=== PATIENT | female | born 1975 | race Caucasian/White ===

== ENCOUNTER 2018-02-06 17:29 | Emergency (ER) | payer BC, SELFPAY | END 2018-02-06 21:10 | disposition home or self-care (01) | PROVIDERS: Emergency Provider Emergency Medicine; Family Provider Family Medicine; PCP Family Medicine; Visit Provider Emergency Medicine | DX: G89.18 Other acute postprocedural pain (principal) | CPT/HCPCS: 74022; 80053; 85025; 93005; 93010; 96374; 96375; 99058; 99285; J2270; J2405 ==

== ENCOUNTER 2020-10-11 14:59 | Emergency (ER) | payer BC, SELFPAY | END 2020-10-11 15:41 | disposition left against medical advice (07) | PROVIDERS: Emergency Provider Emergency Medicine; Family Provider Family Medicine; PCP Family Medicine ==

== ENCOUNTER 2024-09-14 17:44 | Emergency (ER) | payer OTHER, SELFPAY ==
[2024-09-14 17:50] VITALS: BP 134/65; PULSE 85; RESP 20; TEMP 36.4; O2SAT 99; BMI 34.0
--- NOTE | 2024-09-14 18:11 | DI.RAD.S_ITS ---
PROCEDURE: XR FOOT RT MIN 3V INDICATIONS: severe pain in R foot after stepping down on cardboard TECHNIQUE: 3 views of the foot were acquired. COMPARISON: None. FINDINGS: Bones: No fractures or dislocations. No suspicious bony lesions. Incidental note is made of an accessory ossicle, an os tibiale externum. A plantar calcaneal spur is seen. Soft tissues: No tibiotalar joint effusion. Achilles tendon appears normal. IMPRESSION: No acute bony abnormality is seen on these plain films. Dictated by: Boo Vargas M.D. on 09/14/2024 at 17:27 Approved by: Boo Vargas M.D. on 09/14/2024 at 17:28
--- NOTE | 2024-09-14 18:29 | ED.LOWEXIN ---
HPI - Extremity Injury (Lower) <Marily Coley PA-C - Last Filed: 09/14/24 20:21> General Chief Complaint: Extremity Injury, Lower Stated Complaint: R Foot Pain, Numbness in Toes Time Seen by Provider: 09/14/24 17:57 Source: patient Mode of arrival: Ambulatory History of Present Illness HPI Narrative: Ms. George is a pleasant 49 year old female with a past medical history of pheochromocytoma and R foot lipoma removal who presents to the ED for right foot pain that occurred just prior to arrival. Patient states she accidentally stepped onto a piece of cardboard that slipped forward causing her to bear all of her weight aggressively on the right foot. States that she developed sudden pain on the top of the right foot. She did not take any medications prior to arrival. Denies any deformities or wounds. She still has appropriate sensation and range of motion but has pain with ambulation. She did not fall. Related Data Home Medications Medication Instructions Recorded Confirmed duloxetine 20 mg capsule,delayed PO QDAY ##0 02/06/18 release (Cymbalta) Allergies Allergy/AdvReac Type Severity Reaction Status Date / Time Penicillins [PENICILLINS] Allergy Unknown Verified 04/27/19 13:11 ANTI-INFLAMATORIES Allergy Intermediate Uncoded 01/30/18 12:51 SOLINDAC Allergy Unknown Uncoded 02/06/18 18:07 Review of Systems <Marily Coley PA-C - Last Filed: 09/14/24 20:21> Review of Systems ROS Unobtainable: All systems reviewed & are unremarkable except as noted in HPI and below Patient History <Marily Coley PA-C - Last Filed: 09/14/24 20:21> Social History Smoking Status: Current every day smoker Smoking Status: Current every day smoker alcohol intake frequency: a few times a week Substance Use Type: marijuana Exam <Marily Coley PA-C - Last Filed: 09/14/24 20:21> Narrative Exam Narrative: GENERAL: 49 year old patient appears stated age. Well-developed patient, in no acute distress. HEAD: Atraumatic. Normocephalic. EYES: Extraocular motions intact. No injection or drainage. ENT: Nose without bleeding, purulent drainage. Airway patent. NECK: Trachea midline. Cervical ROM intact. CARDIOVASCULAR: Regular rate RESPIRATORY: ?Nonlabored respirations. ?Speaking in clear, full sentences. ? EXTREMITIES: RIGHT FOOT: Tenderness to light palpation of dorsal right midfoot. No focal or point tenderness. No deformities or overlying skin changes. No tenderness to palpation of medial or lateral malleolus, heel, digits. Brisk capillary refill and strong DP and PT pulses BL. NEURO: AOx3. ?Clear speech. ?Moves all 4 extremities appropriately. SKIN: No rash or erythema of visible areas Initial Vital Signs Initial Vital Signs: Vital Signs Temperature 97.6 F 09/14/24 17:50 Pulse Rate 85 09/14/24 17:50 Respiratory Rate 20 09/14/24 17:50 Blood Pressure 134/65 09/14/24 17:50 Pulse Oximetry 99 09/14/24 17:50 Oxygen Delivery Method Room Air 09/14/24 17:50 <DO Sunshine Perkins Last Filed: 09/14/24 21:30> Initial Vital Signs Initial Vital Signs: Vital Signs Temperature 97.6 F 09/14/24 17:50 Pulse Rate 85 09/14/24 17:50 Respiratory Rate 20 09/14/24 17:50 Blood Pressure 134/65 09/14/24 17:50 Pulse Oximetry 99 09/14/24 17:50 Oxygen Delivery Method Room Air 09/14/24 17:50 Course <Marily Coley PA-C - Last Filed: 09/14/24 20:21> Orders Ordered: ED Orders 09/14/24 18:11 XR foot RT min 3V Stat Discontinued Medications Acetaminophen (Acetaminophen 325 Mg Tablet) 650 mg PO NOW ONE Stop: 09/14/24 18:29 Last Admin: 09/14/24 18:47 Dose: 650 mg Documented By: FREDDY Oxycodone/Acetaminophen (Oxycodone/Acetaminophen 5/325 Tablet) 1 tab PO NOW ONE Stop: 09/14/24 18:29 Last Admin: 09/14/24 18:47 Dose: 1 tab Documented By: FREDDY Vital Signs Vital signs: Vital Signs - 8 hr 09/14/24 17:50 Temperature 97.6 F Pulse Rate 85 Respiratory Rate 20 Blood Pressure 134/65 Pulse Oximetry 99 Oxygen Delivery Method Room Air <DO Sunshine Perkins Last Filed: 09/14/24 21:30> Orders Ordered: ED Orders 09/14/24 18:11 XR foot RT min 3V Stat Discontinued Medications Acetaminophen (Acetaminophen 325 Mg Tablet) 650 mg PO NOW ONE Stop: 09/14/24 18:29 Last Admin: 09/14/24 18:47 Dose: 650 mg Documented By: FREDDY Oxycodone/Acetaminophen (Oxycodone/Acetaminophen 5/325 Tablet) 1 tab PO NOW ONE Stop: 09/14/24 18:29 Last Admin: 09/14/24 18:47 Dose: 1 tab Documented By: FREDDY Vital Signs Vital signs: Vital Signs - 8 hr 09/14/24 17:50 Temperature 97.6 F Pulse Rate 85 Respiratory Rate 20 Blood Pressure 134/65 Pulse Oximetry 99 Oxygen Delivery Method Room Air MDM - Extremity Injury (Lower) <Marily Coley PA-C - Last Filed: 09/14/24 20:21> MDM Narrative Medical decision making narrative: 49-year-old female with a past medical history pheochromocytoma and right foot lipoma removal presents to the emergency department for right foot pain after stepping wrong just prior to arrival. Differential diagnosis includes but is not limited to foot fracture, foot strain, sprain, contusion, hematoma, etc.. On exam patient is in no acute distress, nontoxic appearing, vital signs within normal limits. She does have intense reported pain with any weight-bearing of the right foot or palpation on the dorsal aspect of the foot. We will obtain x-ray of the right foot and treat pain with 1 time dose of oxycodone and Tylenol. Patient's but x-ray reveals no acute bony abnormalities. Patient was placed into a right foot postop shoe and was given crutches and advised to weightbear as tolerated. Advised patient to follow up with orthopedics or podiatry for further evaluation of possible soft tissue injury of the foot, she states that she already has an orthopedic doctor which she will call tomorrow. Recommended ibuprofen/Tylenol if needed for pain, rice therapy, strict ER return precautions discussed. Patient is with her to drive her home and is stable for discharge. Discharge Plan Departure Patient Disposition: Home Clinical Impression: Right foot strain Qualifiers: Encounter type: initial encounter Qualified Code(s): S96.911A - Strain of unspecified muscle and tendon at ankle and foot level, right foot, initial encounter Instructions: DI for Foot Pain Activity Restrictions/Additional Instructions: Please rest, ice foot, wear compressive wrap or supportive shoe, and elevate foot. Use tylenol if needed for pain. Weight bear as tolerated (use crutches if needed). You may call to schedule an appointment with [facility] for follow up at [phone]. Follow up with a primary doctor in 2-3 days and return to the ER for any new or worsening symptoms. Prescriptions: No Action duloxetine [Cymbalta] 20 mg capsule,delayed release(DR/EC) PO QDAY Qty: 0 Referrals: Cinthya Alba DO [Primary Care Provider] - Stand Alone Forms: Patient Portal/API/Survey ED Sign-out <Germaine Enciso DO - Last Filed: 09/14/24 21:30> Cosign ED Attending Sophia Attestation: I was immediately available in the department for consultation.
[2024-09-14] MEDS: ACETAMINOPHEN 325 MG TABLET 650 MG PO (18:47)
[2024-09-14] MEDS: OXYCODONE/ACETAMINOPHEN 5/325 TABLET 1 TAB PO (18:47)
== END 2024-09-14 19:21 | disposition home or self-care (01) ==
PROVIDERS: Emergency Provider Physician Assistant; Family Provider Family Medicine; PCP Family Medicine
DX: S96.911A Strain of unspecified muscle and tendon at ankle and foot level, right foot, initial encounter (principal); W01.0XXA Fall on same level from slipping, tripping and stumbling without subsequent striking against object, initial encounter
CPT/HCPCS: 73630; 99283

== ENCOUNTER → 2025-01-21 13:26 | Outpatient (CLI) | payer OTHER, SELFPAY ==
--- NOTE | 2025-01-21 13:28 | DI.US.S_ITS ---
PROCEDURE: US PELVIC COMPLETE INDICATIONS: IRREGULAR BLEEDING - ?POSTMENOPAUSAL TECHNIQUE: Real-time scanning was performed of the pelvic organs, with image documentation. Additional endovaginal scanning was necessary due to incomplete visualization of the adnexal and endometrial structures by transabdominal scanning. COMPARISON: None. FINDINGS: Uterus: Uterus is mobile and normal in size at 7.9 x 4.9 x 4.3 cm. The myometrium is homogeneous. The endometrium measures 6.3 mm combined thickness. Microcysts with trace anechoic fluid in the cervix. Ovaries: The right ovary is not well seen. The left ovary measures 2.8 x 2.1 x 2.0 cm, with a calculated ovarian volume of 6.2 cc. Left ovary is grossly normal in appearance. Other: No pathologic free abdominal or pelvic fluid. IMPRESSION: Endometrium measures 6 mm in thickness. If patient is postmenopausal, this is considered thickened and short-term follow-up ultrasound or endometrial sampling is recommended. If patient is premenopausal, this is within normal limits. Left ovary is grossly normal in appearance. Right ovary is not well seen. We strive to produce accurate, complete, and clear reports of imaging services. To assist us in improving patient care, this report was composed using standard report templates and voice recognition software. Therefore, it may contain abnormal punctuation, insertions and/or omissions. Occasional wrong-word or sound-alike substitutions may occur. Though we review the report and make efforts to correct it, we do recommend that the report be read carefully in proper context to recognize any text inaccuracies. Dictated by: Donnie Ybarra M.D. on 01/21/2025 at 15:14 Approved by: Donnie Ybarra M.D. on 01/21/2025 at 15:18
== END ==
PROVIDERS: Family Provider Family Medicine; PCP Obstetrics & Gynecology; Referring Provider Obstetrics & Gynecology; Visit Provider Obstetrics & Gynecology
DX: N92.6 Irregular menstruation, unspecified (principal)
CPT/HCPCS: 76830; 76856

== ENCOUNTER 2025-03-19 09:09 | Day surgery (SDC) | payer BC, SELFPAY ==
[2025-03-11 09:19] VITALS: BMI 36.6
[2025-03-19] VITALS (16 sets, daily range): BP systolic 108–137; BP diastolic 57–81; PULSE 22–84; RESP 10–19; TEMP 35.9–37; O2SAT 95–100; BMI 34.0; BMI 34.2
--- NOTE | 2025-03-19 | PATH_ITS ---
[facility] Accession Number: [id number] No. of containers..01 Tissue . 01 Material submitted: . uterus - UTERUS, CERVIX, BILATERAL FALLOPIAN TUBES . 01 Diagnosis: UTERUS, CERVIX AND BILATERAL FALLOPIAN TUBES; HYSTERECTOMY AND BILATERAL SALPINGECTOMY (PRESERVED OVARIES): Uterine weight: 92 grams. Mild chronic cervicitis; negative for dysplasia and malignancy. Secretory phase endometrium; negative for endometrioid intraepithelial neoplasia and malignancy. Negative for adenomyosis, on in home sales representative sections. Bilateral fallopian tubes without pathologic abnormalities; negative for atypia or malignancy. [facility] 03/25/2025 1432 Local . 01 Electronically signed: . Ann Morrison MD, Pathologist NPI- [id number] . 01 Gross description: . Received in formalin with two identifiers and uterus, cervix, bilat fallopian tubes, is an intact uterus (92 grams, 8.7 cm superior to inferior, 6.1 cm medial to lateral, 3.9 cm anterior to posterior) with attached cervix (3.0 x 3.0 cm), attached left fallopian tube (6.5 x 0.6 cm), and detached right fallopian tube (6.7 x 0.7 cm) with no additional adnexa. . The ectocervix is pink, smooth, and glistening with a patulous os, 1.0 cm in diameter. The anterior paracervical margin is inked blue while the posterior paracervical margin is inked black. A large metal surgical clip (1.5 x 0.4 cm) that is partially covered by a thin layer of soft tissue is identified at the junction of the right parametrial and paracervical margins. The serosa is uribe and smooth with no hemorrhage or adhesion identified. The endocervical canal has uribe herringbone mucosa and measures 3.6 cm in length. The endometrial cavity is 2.5 cm from cornu to cornu and 4.2 cm in length with red velvety endometrium that averages 0.1 cm thick. The myometrium is pink-uribe and trabecular measuring up to 1.9 cm in maximum thickness with no nodules or lesions identified. Both tubes have violaceous, smooth serosa with small cysts up to 0.1 cm in greatest dimension. A metal surgical clip covered with thin layer of soft tissue is identified at the base of the left fallopian tube (1.5 x 0.4 cm). No clip is identified on the right fallopian tube. The lumens are stellate and unremarkable. . Sales Exec sections are submitted as follow: A1: Anterior cervix. A2: Posterior cervix. A3: Anterior full thickness section. A4: Posterior full thickness section. A5: Left fallopian tube to include one-half of bisected fimbriae and cross sections. A6: Right fallopian tube to include one-half of bisected fimbriae and cross sections. ([id number]) /MRV 03/20/2025 [facility]5 Local . 01 Pathologist provided ICD-10: N81.2, R10.2, N93.9, N39.3, N81.10 . 01 CPT . 984917 Specimen Comment: A courtesy copy of this report has been sent to [phone] Performed at: [address] [address], [place], [place] [id number] MD Jv Martinez MD Phone: [phone]
[2025-03-19] MEDS: FAMOTIDINE 20 MG/2 ML VIAL IV (09:38)
[2025-03-19] MEDS: SCOPOLAMINE 1 PATCH TOP (09:39)
[2025-03-19] MEDS: ACETAMINOPHEN 325 MG TABLET 975 MG PO (09:39)
[2025-03-19] MEDS: LACTATED RINGERS 1,000 ML 42 ML IV (09:39)
--- NOTE | 2025-03-19 09:51 | PM.PREOP ---
Pre-operative Note COVID-19 COVID-19 status: Not tested Interval Note History & Physical reviewed/Exam performed by Physician: Yes Changes to H&P: No
[2025-03-19] MEDS: CEFAZOLIN 2 GM/100 ML PREMIX 100 ML IV (10:40)
--- NOTE | 2025-03-19 10:57 | SUR.OPER ---
Lithotomy on padded OR bed. [place] Pad Positioner under torso. Head on pillow, arms padded and tucked at sides, left arm toboggan used to support, shoulders secured with tape. Legs secured in padded yellow fins stirrups.
[2025-03-19] MEDS: BUPIVACAINE 0.5% W/ EPI (PF) 30 ML VIAL INJ (12:01)
--- NOTE | 2025-03-19 14:39 | P.OP_ITS ---
Operative Date/Time/Diagnoses Date of procedure: 03/19/25 Time of procedure: 11:00 Pre-op diagnosis: Abnormal uterine bleeding Cystocele Stress urinary incontinence Uterovaginal prolapse, incomplete Post-op diagnosis: same Procedure & Clinicians Procedure: Procedures Operation Date: 03/19/25 10:30 Actual Procedure Side Surgeon p Laparoscopic Total Hysterectomy with bilateral salpingectomy, laparoscopic uterosacral ligament vault suspension Claudio De La Cruz MD s anterior repair, Not Applicable Claudio De La Cruz MD s mid urethral sling placement with cystoscopy Not Applicable Claudio De La Cruz MD Indications: Pastora is a 49-year-old , LMP in December 2024 who presents for evaluation and recommendations for therapy related to a couple of complaints for which she and her primary care provider believe she would be a candidate for hysterectomy. Patient experienced menarche at age 15 and has pretty much had irregular menses throughout her reproductive life. Over the last few years however the patient has been having significant vasomotor symptoms and her menses have become widely spaced. Her most recent period on in December 2024 was the 1st episode of bleeding that she has had in about a year. That bleeding episode occurred after she applied topical progesterone to counter balance use of topical estrogen cream. Prior to the period December 2024, the patient had almost gone 2 years without any episodes of bleeding. Pelvic ultrasound performed 01/21/2025 showed the uterus to be mobile and normal in size at 7.9 by 4.9 x 4.3 cm. The myometrium is described as homogeneous. The endometrium measures 6.3 mm in combined thickness and microcysts with trace leuks anechoic fluid is noted in the cervix. The right ovary is not well seen. The left ovary measures 2.8 x 2.1 x 2.0 cm with a calculated ovarian volume of 6.2 cc. The left ovary is grossly normal in appearance. There was no pathological free abdominal or pelvic fluid. Patient experiences constant lower abdominal discomfort and low back pain with lower abdominal bloating. In addition the patient has progressively worsening dyspareunia with intercourse in that discomfort lasts for more than 24 hours following intercourse which is becoming a reason for her to want to avoid intercourse. Topical estrogen was started about 3 months ago but when progesterone was added, it triggered severe bleeding with passage of large clots and therefore both the estradiol and the progesterone were withdrawn. Past history is notable for normal Paps throughout her adult life although she is overdue for a Pap. In addition she is scheduled to have both her Pap and an endometrial biopsy performed by Dr. Briggs in her office on February 14. Surgical history is notable for history of cholecystectomy in 2000 and spinal fusion surgery in 2014 performed transabdominally after which she developed a MRSA infection and as a result wound up with a great deal of scarring at the incision site as well as the presence of a wound VAC for 3 months and gradually closure of the abdominal incision by secondary intention. Patient was recently d iagnosed with a left-sided adrenal mass diagnosed as a pheochromocytoma according to the patient but no records are available for review. She has apparently been seen by a surgeon who was apparently unwilling to remove the adrenal due to concern over intra-abdominal scarring. Unfortunately no records are available for review of either her spinal fusion surgery or the consultation with the surgeon for removal of the adrenal mass. The patient, her , and I had an extended discussion about potential causes of abnormal uterine bleeding as well as treatment options. We also discussed potential causes of her deep dyspareunia and pelvic pain as well as potential treatment options. And finally we also discussed her prolapse and MIKI symptoms as well as options for treatment. After these discussions, the patient would very much like to proceed with total laparoscopic hysterectomy and bilateral salpingectomy with preservation of ovaries if they are normal in appearance, laparoscopic uterosacral ligament suspension of the vaginal vault, anterior repair, and placement of a mid urethral sling with cystoscopy. Consideration may also be given to posterior repair although it is only stage I and asymptomatic. The sequelae from the patient's transabdominal lumbar fusion including significant intra-abdominal scarring is certainly a consideration as we approach surgery. Based on that history, initial laparoscopic entry at Lucio's point will likely be prudent although there is no scarring evident at the umbilicus. She presents today for her scheduled surgery. Surgeon: Claudio De La Cruz Anesthesia Type: General Operative Notes Findings: Stage 2-3 cystocele with stage 2 uterovaginal prolapse. There is a first-degree rectocele which is asymptomatic and was largely reduced by elevation of the vaginal apex with the uterosacral ligament suspension. Both ovaries appeared normal. The fallopian tubes demonstrate changes with prior application of Hulka clips. The bladder is normal in all respects with no evidence of injury and brisk jets of urine were seen to come from each ureteral meatus. The remainder of the abdomen and pelvis were normal to laparoscopic inspection with the exception of adhesions to the anterior abdominal wall where her anterior approach laminectomy at previously been performed. These were all lysed during the course of surgery. Closure Type: primary Specimen(s): left tube, right tube and uterus Applied: catheter Estimated blood loss (mL): 125 Blood products transfused: none Procedure in detail: With the patient in modified dorsal lithotomy position preparations were made by prepping and draping the patient in usual manner for vaginal surgery and in sertion of Talley catheter. A pre-surgical time-out was then taken in accordance with [facility] policy. A bivalve speculum was then placed in the vagina and the cervix visualized. A weighted speculum was inserted in the vagina and the anterior vaginal wall inspected. A Talley catheter was inserted in the bladder and the mid urethra was identified by palpation of the Talley bulb. Once the mid urethra had been identified, 2 Allis clamps were placed and the area of incision infiltrated with 0.25% Marcaine with epinephrine. A 2 cm longitudinal incision of the vaginal mucosa overlying the mid urethra was then made and using Metzenbaum scissors the dissection was carried lateral on both sides so as to be able to safely introduce the retropubic tension-free vaginal tape. The TVT needle was placed 1st on the right side followed by placement of a left up through the suprapubic skin. The needle tips were brought out through the skin and remained in place while the Talley catheter was removed and cystoscopy performed with findings as noted above. The TVT needles were then brought up through the suprapubic incisions and removed with suture scissors. The mid urethral sling was then appropriately positioned under the mid urethra and the plastic sleeves removed from the TVT once it was in correct position. The redundant portion TVT material was then excised at the skin line of the suprapubic incisions. Correct positioning of the TVT was then confirmed and the vaginal incision closed with 3-0 chromic in a running locking stitch. Pressure was maintained on the retropubic tissues for 5 minutes so as to reduce the risk subsequent bleeding or bruising. The suprapubic incisions were then closed with skin glue. and an appropriate dressing was applied. The midline of the upper vaginal mucosa underlying the bladder was then infiltrated with 0.5% Marcaine with epinephrine and a longitudinal incision of the mucosa was carried out up to the cervical vaginal reflection. The underlying tissues were mobilized on both sides and a two-layer plication with 0 Vicryl interrupted was then performed in the usual manner followed by resection of redundant anterior vaginal mucosa. The anterior colporrhaphy was then closed with 0 Vicryl interrupted stitches and hemostasis was excellent. The anterior lip of the cervix was then grasped with a single-tooth tenaculum. The uterus was sounded to 7 cm, the endocervical canal dilated slightly, and a Nuevolutionare uterine manipulator with a small colpotomy cup was placed. The umbilicus was then infiltrated with 0.5% Marcaine with e pinephrine. A 1 cm umbilical incision was made transversely and a Veress needle was used to insufflate the abdominal cavity with carbon dioxide. Once the abdomen was appropriately insufflated, a 5 mm trocar and sleeve were then placed through the umbilical incision. The scope was placed through the trocar and the initial assessment of the intra-abdominal contents carried out. A 2nd and 3rd 5 mm port was then placed 1st in the right mid quadrant from then the left mid quadrant by infiltration of the skin and subcutaneous tissues, a 1 cm transverse incision and insertion of the 5 mm bladeless port. A 4th 5 mm trocar was introduced deep in the right lower quadrant in a similar fashion. Using a 4 puncture technique, the abdomen and pelvis were inspected laparoscopy and photographically documented. The uterosacral ligaments were identified on both sides and the lateral edges of the uterosacral ligaments were marked with small dots created by monopolar cautery on cutting current at 20 w so as to be able to identify the lateral margins of the uterosacral ligaments at the time of uterosacral vault suspension. Uterus is mobilized with the VCare manipulator and attention turned to the left adnexa. The distal tube was then grasped and the fimbria varicose divided after coagulation with the PowerSeal device. The dissection was then carried out toward the cornua and the fallopian tube amputated. The tube was removed through a 5 mm port and dissection was then carried down using the PowerSeal device so as to divide the utero-ovarian ligament and the round ligament with blunt and sharp dissection of the broad down to the level of the uterine artery. The uterine artery was then skeletonized after development of a bladder flap, coagulated, and divided. Once hemostasis was assured on the left side attention was turned to the right and the tube, utero-ovarian ligament, round ligament, and broad ligament were dissected in a fashion exactly the same as it had been on the left. The right uterine artery was then visualized after skeletonization and coagulated and divided. The uterus was seen to johan after coagulation of both your arteries and the cup was identified through the vaginal muscularis at its insertion with the body of the cervix. Circumferential excision of the vaginal cup was accomplished without difficulty using monopolar current and the uterus mobil ized. The uterus was then removed through the vagina and the vaginal cuff was closed with a 2-0 Stratafix suture introduced through the vaginal canal and incorporating the distal aspects of the uterosacral ligaments on both sides. Hemostasis was excellent, the abdomen was re-insufflated, and the pelvis inspected laparoscopically. Using 2-0 Ethibond suture, 2 sutures were placed on either side so as to incorporate the more proximal portions of the uterosacral ligament on each side to the vaginal cuff. Each suture was tied securely in place with extracorporeal knot pusher. The pelvis was inspected for any abnormality or bleeding, and the ureters were each seen to be peristalsing freely. 20 cc of ropivacaine were instilled into the posterior cul-de-sac. With complete hemostasis assured, the pneumoperitoneum was vented and the ports removed. All of the 5 mm ports were then closed with 4-0 Monocryl on the skin using inverted interrupted sutures. Skin glue was placed and after the glue was dried, an appropriate dressing was applied. Speculum exam showed no vaginal bleeding with excellent suspension of the vaginal apex and anterior vaginal wall. The posterior vaginal wall had minimal laxity in was not felt to warrant repair at this point. The case was then terminated, the patient awakened, and then transferred to PACU after having tolerated the procedure well. Complications: none Post-operative Condition: stable Disposition: PACU Plan for aftercare: Routine postop care with follow-up planned for 2 weeks after surgery
[2025-03-19] MEDS: HYDROMORPHONE 1 MG INJ IV ×5 (14:55→18:25)
[2025-03-19] MEDS: hydrOXYzine 50 MG/ML INJ 25 MG IM (14:57)
[2025-03-19] MEDS: ONDANSETRON 4 MG/2 ML INJ IV ×2 (15:01→21:43)
[2025-03-19] MEDS: fentaNYL 100 MCG/2 ML INJ IV ×2 (15:07→15:12)
[2025-03-19] MEDS: OXYCODONE IR 5 MG TABLET PO (15:32)
[2025-03-19] MEDS: KETOROLAC 30 MG/ML VIAL IV ×2 (16:19→21:43)
[2025-03-19] MEDS: ACETAMINOPHEN 325 MG TABLET 650 MG PO ×2 (16:20→21:43)
[2025-03-19] MEDS: LACTATED RINGERS 1,000 ML 100 ML IV (16:21)
[2025-03-19] MEDS: DOCUSATE 100 MG CAPSULE 200 MG PO (21:43)
[2025-03-20 03:58] VITALS: BP 134/74; PULSE 86; RESP 19; TEMP 36.7; O2SAT 98
[2025-03-20] MEDS: ACETAMINOPHEN 325 MG TABLET 650 MG PO (04:21)
[2025-03-20] MEDS: KETOROLAC 30 MG/ML VIAL IV (04:22)
[2025-03-20] MEDS: ONDANSETRON 4 MG/2 ML INJ IV (04:22)
[2025-03-20 05:56] LABS: Add Manual Diff / Slide Review NO; Basophils Absolute Auto 100 /uL (0-100); Basophils Percent Auto 0.7 % (0-2); Eosinophils Absolute Auto 0 /uL (0-450); Eosinophils Percent Auto 0.1 % (2-4); Hematocrit 33.5 % (36-46); Hemoglobin 11.8 g/dL (12.0-16.0); Lymphocytes Absolute Auto 1000 /uL (1100-4500); Lymphocytes Percent Auto 9.5 % (25-40); Mean Corpuscular HGB Conc 35.2 % (30-36); Mean Corpuscular Hemoglobin 30.6 PG (26-34); Mean Corpuscular Volume 87.1 fL (80-100); Monocytes Absolute Auto 700 /uL (0-900); Monocytes Percent Auto 6.4 % (3-14); Neutrophils Absolute Auto 8900 /uL (1500-7000); Neutrophils Percent Auto 83.3 % (50-75); Platelet Count 329 X10^3/uL (150-400); Red Blood Cell Count 3.85 X10^6/uL (4.0-5.2); Red Cell Distribution Width 12.5 % (11.6-14.8); White Blood Cell Count 10.7 X10^3/uL (4.5-11.0)
[2025-03-20 08:00] VITALS: BP 127/84; PULSE 72; RESP 18; TEMP 37.1; O2SAT 96
[2025-03-20] MEDS: DOCUSATE 100 MG CAPSULE 200 MG PO (08:07)
[2025-03-20] MEDS: DULOXETINE 20 MG CAPSULE PO (08:07)
[2025-03-20] MEDS: OXYCODONE IR 5 MG TABLET PO (08:07)
[2025-03-20] MEDS: METOPROLOL ER 50 MG TABLET PO (08:08)
[2025-03-20] MEDS: ENOXAPARIN 40 MG/0.4 ML SYRINGE SUBCUT (08:08)
[2025-03-20] MEDS: hydroCHLOROthiazide 25 MG TABLET 12.5 MG PO (08:08)
--- NOTE | 2025-03-20 08:08 | PM.DS.IH.1 ---
History of Present Illness History of Present Illness Date Patient Seen: 03/20/25 Time Patient Seen: 08:08 Chief complaint: SDC Narrative: Pastora is a 49-year-old , LMP in December 2024 who presents for evaluation and recommendations for therapy related to a couple of complaints for which she and her primary care provider believe she would be a candidate for hysterectomy. Patient experienced menarche at age 15 and has pretty much had irregular menses throughout her reproductive life. Over the last few years however the patient has been having significant vasomotor symptoms and her menses have become widely spaced. Her most recent period on in December 2024 was the 1st episode of bleeding that she has had in about a year. That bleeding episode occurred after she applied topical progesterone to counter balance use of topical estrogen cream. Prior to the period December 2024, the patient had almost gone 2 years without any episodes of bleeding. Pelvic ultrasound performed 01/21/2025 showed the uterus to be mobile and normal in size at 7.9 by 4.9 x 4.3 cm. The myometrium is described as homogeneous. The endometrium measures 6.3 mm in combined thickness and microcysts with trace leuks anechoic fluid is noted in the cervix. The right ovary is not well seen. The left ovary measures 2.8 x 2.1 x 2.0 cm with a calculated ovarian volume of 6.2 cc. The left ovary is grossly normal in appearance. There was no pathological free abdominal or pelvic fluid. Patient experiences constant lower abdominal discomfort and low back pain with lower abdominal bloating. In addition the patient has progressively worsening dyspareunia with intercourse in that discomfort lasts for more than 24 hours following intercourse which is becoming a reason for her to want to avoid intercourse. Topical estrogen was started about 3 months ago but when progesterone was added, it triggered severe bleeding with passage of large clots and therefore both the estradiol and the progesterone were withdrawn. Past history is notable for normal Paps throughout her adult life although she is overdue for a Pap. In addition she is scheduled to have both her Pap and an endometrial biopsy performed by Dr. Briggs in her office on February 14. Surgical history is notable for history of cholecystectomy in 2000 and spinal fusion surgery in 2014 performed transabdominally after which she developed a MRSA infection and as a result wound up with a great deal of scarring at the incision site as well as the presence of a wound VAC for 3 months and gradually closure of the abdominal incision by secondary intention. Patient was recently diagnosed with a left-sided adrenal mass diagnosed as a pheochromocytoma according to the patient but no records are available for review. She has apparently been seen by a surgeon who was apparently unwilling to remove the adrenal due to concern over intra-abdominal scarring. Unfortunately no records are available for review of either her spinal fusion surgery or the consultation with the surgeon for removal of the adrenal mass. The patient, her , and I had an extended discussion about potential causes of abnormal uterine bleeding as well as treatment options. We also discussed potential causes of her deep dyspareunia and pelvic pain as well as potential treatment options. And finally we also discussed her prolapse and MIKI symptoms as well as options for treatment. After these discussions, the patient would very much like to proceed with total laparoscopic hysterectomy and bilateral salpingectomy with preservation of ovaries if they are normal in appearance, laparoscopic uterosacral ligament suspension of the vaginal vault, anterior repair, and placement of a mid urethral sling with cystoscopy. Consideration may also be given to posterior repair although it is only stage I and asymptomatic. The sequelae from the patient's transabdominal lumbar fusion including significant intra-abdominal scarring is certainly a consideration as we approach surgery. Based on that history, initial laparoscopic entry at Lucio's point will likely be prudent although there is no scarring evident at the umbilicus. She presents today for her scheduled surgery. Discharge Providers Provider Date of admission: 03/19/2025 Discharge Date: 03/20/25 Primary care physician: Heather Briggs DO Discharge provider: Claudio De La Cruz MD Summary Hospital Course Discharge Diagnosis: Abnormal uterine bleeding Cystocele Stress urinary incontinence Uterovaginal prolapse (incomplete) Status post total laparoscopic hysterectomy with bilateral salpingectomy, laparoscopic uterosacral ligament vault suspension, anterior repair, and mid urethral sling placement with cystoscopy Hospital Course: The patient was admitted on 03/19/2025 and underwent an uneventful total laparoscopic hysterectomy with bilateral salpingectomy, laparoscopic uterosacral vault suspension, anterior repair, and mid urethral sling placement with cystoscopy. Full details of the procedure well summarized on my operative note of that date. Following surgery the patient has done extremely well with prompt return of bowel and bladder function, she is ambulating independently, tolerating regular diet, and her pain is well controlled with oral pain medications. She will be discharged at this time to home in an afebrile normotensive condition after counseling regarding precautionary symptoms, limitations activity, medications, and plans for follow-up which will be in 2 weeks or as needed. Medications at discharge will include resumption of all pre-admission medications as well as oxycodone 5 mg tabs, 1 p.o. Q 4-6 hours as needed for pain, dispense 30 with no refills, and Lovenox 40 mg subQ q.d. times 10 days. Status at Discharge Cognitive/behavioral status at discharge: oriented Functional status at discharge: independent ambulation Overall status at discharge: patient is progressing back to baseline Time Spent with Patient Time spent: Less than 30 minutes Exam Vital Signs (past 8 hours): - 03/20/25 03:58 Temperature 98.0 F Pulse Rate 86 Respiratory Rate 19 Blood Pressure 134/74 Pulse Oximetry 98 Oxygen Flow Rate 0 Oxygen Delivery Method Room Air Oxygen Flow Rate 0 Const General: cooperative and comfortable Nutritional Appearance: average body habitus Orientation: alert and oriented x3 HENMT Head: normal to inspection, atraumatic and abrasion Ears: hearing grossly normal bilaterally Face and sinus: face symmetric Eyes General: appearance normal, both eyes and all related structures Conjunctivae: conjunctivae normal Sclera: sclerae normal EOM: EOM intact bilaterally Neck Neck: normal visual inspection Resp Effort & Inspection: normal respiratory effort and able to speak in complete sentences Auscultation: clear to auscultation bilaterally Cardio Rate: regular rate Rhythm: regular rhythm Heart Sounds: S1 normal, S2 normal and no murmurs GI Inspection: normal to inspection and incision (Surgical dressings clean and dry) Palpation: soft, no hepatosplenomegaly and tender (Mild, diffuse postsurgical tenderness) External Female Exam: other (No significant bleeding noted) Extrem General: no calf tenderness Psych Appearance: grossly normal Mental Status: mental status grossly normal Speech and Movement: speech and movement normal Mood: congruent mood Affect: normal affect Attitude: cooperative Thought Process: normal Thought Content: normal Judgment: judgment good Objective Labs 03/20/25 05:46 Labs: Laboratory Results - last 24 hr 03/20/25 05:46 WBC 10.7 RBC 3.85 L Hgb 11.8 L Hct 33.5 L MCV 87.1 MCH 30.6 MCHC 35.2 RDW 12.5 Plt Count 329 Neut % (Auto) 83.3 H Lymph % (Auto) 9.5 L [place] % (Auto) 6.4 Eos % (Auto) 0.1 L Baso % (Auto) 0.7 Neut # (Auto) 8900 H Lymph # (Auto) 1000 L [place] # (Auto) 700 Eos # (Auto) 0 Baso # (Auto) 100 PFSH Surgical History Hx of cholecystectomy (2000) History of lumbar spinal fusion (2014) Social History household members: spouse alcohol intake: current Discharge Assessment & Plan Assessment and Plan Assessment: Abnormal uterine bleeding Cystocele Stress urinary incontinence Uterovaginal prolapse (incomplete) Status post total laparoscopic hysterectomy with bilateral salpingectomy, laparoscopic uterosacral ligament vault suspension, anterior repair, and mid urethral sling placement with cystoscopy Plan of Treatment: Routine postoperative care with follow-up planned for 2 weeks after discharge or as needed. Discharge Plan Discharge Plan Patient Disposition: Home Provider Discharge Comment: Please review the written instructions you received when you were discharged from the hospital. Your follow-up appointment is scheduled for 2 weeks after your surgery and I look forward to seeing you then. If however in the meanwhile you have any issues, concerns, or questions, please contact me either by the office phone at [phone], or via the patient portal. Discharge orders & Medications Discharge Orders: Discharge (Order); Ordered 03/20/25 Ordered By: Claudio De La Cruz Prescriptions: New enoxaparin [Lovenox] 40 mg/0.4 mL Syringe 40 mg SUBCUT DAILY Qty: 10 0RF oxycodone 5 mg tablet 5 mg PO Q4-6H PRN (Reason: pain) Qty: 20 0RF Continued duloxetine [Cymbalta] 20 mg capsule,delayed release(DR/EC) 20 mg PO QDAY Qty: 0 lisdexamfetamine 30 mg capsule 30 mg PO DAILY metoprolol succinate 50 mg tablet extended release 24 hr 50 mg PO DAILY hydrochlorothiazide 12.5 mg tablet 12.5 mg PO QAM estradiol [Divigel] 1 mg/gram (0.1 %) gel in packet 1 packet transdermal DAILY Medication counseling provided by Pharmacist: No Follow up/Referrals: Chester,Heather, DO [Primary Care Provider, TREE [employer]ER OPERATOR] Claudio De La Cruz MD [Physician, TREE FE[employer]ER OPERATOR] Diet/Activity/Treatments Diet: Diet as Tolerated Activity: As tolerated Other treatments: [id number] Tylenol and/or ibuprofen may be used as needed for additional pain relief. [id number] stool softeners and/or MiraLax may be used as needed for constipation. Skin/Wound/Dressing Care Report to your healthcare provider any signs of infection, such as:: chills, fever, increased pain, unusual drainage and unusual redness Visit Report/Discharge Packet Instructions: Urinary Incontinence Surgery -- Sling Procedures, DI for Hysterectomy, DI for Laparoscopy, DI for Prescription Opioid Use Stand Alone Forms: Patient Portal/API, Surgery Discharge Print Language: Portuguese Discharge Data Primary Care Provider: Heather Briggs Attending Provider: Claudio De La Cruz Quality VTE Deep Vein Thrombosis/Pulmonary Embolism Present on Admission: No IH PROFEE Charge Codes Discharge inpatient/observation: [id number]
--- NOTE | 2025-03-20 09:59 | PC.NURSE ---
Day shift: Discharge instructions gone over with patient and patient's spouse. All questions answered, patient stated understanding. PIV x2 removed prior to discharge. All belongings with patient. This RN escorted patient via wheelchair to exit.
--- NOTE | 2025-03-20 12:45 | CM.DANOTE ---
DCP Assessment Note: Pt is a 49yo female, resident of [place], is admitted s/p total hysterectomy. Pt lives in a house with her , [place]. Pt's Primary Care Provider is Dr. Heather Briggs and insurance is [employer] of [employer]. Reviewed chart and discussed with multidisciplinary team pt's medical status and initial discharge needs. EMR Assessment/Review completed, DCP not able to meet with pt prior to discharge. Plan: Pt discharged home with spouse to transport, no dc needs identified. CM team will follow closely for coordination of discharge plans. [facility]E [facility]ao Discharge Planning/Care Management CM Discharge Assessment Start: 03/19/25 11:07 Freq: Status: Discharge Protocol: Document 03/20/25 12:44 MW (Rec: 03/20/25 12:45 MW [id number]) Discharge Planning Assessment Assigned Procurement Coordinator STEPH Mancia DPOA/Assigned Designee Name Will, Spouse Contact Information [phone] Advance Directives? No History Provided By Medical Record Has Patient been admitted in last 30 No days? Prior Living Arrangements House Comment [place] [facility] spouse Type of transporation used prior to Drives own vehicle admit Independent with ADL's Yes Is patient alert and oriented? Yes Caregiver for Another No Discharge Plan Home Review Status In Process Please Provide Date Initial DC 03/20/25 Assessment Was Performed Next Review Type Continued Stay Review
== END 2025-03-20 09:59 | disposition home or self-care (01) ==
LOC: OR 09:10 → AC 10:59
PROVIDERS: Family Provider Family Medicine; PCP Obstetrics & Gynecology; Referring Provider Obstetrics & Gynecology; Visit Provider Obstetrics & Gynecology
PROC: 0UT94ZZ Resection of Uterus, Percutaneous Endoscopic Approach (ICD-10-PCS; CPT 57425; principal; 2025-03-19 10:30)
PROC: (CPT 57425; 2025-03-19 10:30)
PROC: 0TSD0ZZ Reposition Urethra, Open Approach (ICD-10-PCS; CPT 57425; 2025-03-19 10:30)
DX: N93.9 Abnormal uterine and vaginal bleeding, unspecified (principal); N81.2 Incomplete uterovaginal prolapse; R10.2 Pelvic and perineal pain; N39.3 Stress incontinence (female) (male); N73.6 Female pelvic peritoneal adhesions (postinfective); N94.10 Unspecified dyspareunia; N72 Inflammatory disease of cervix uteri
CPT/HCPCS: 57425; 58571; 57288; 57240; 81025; 85025; C1713; J0690; J1100; J1171; J1650; J1885; J2250; J2405; J2704; J3010; J3410; J3475; J3490

== ENCOUNTER → 2025-05-25 16:19 | Outpatient (CLI) | payer BC, SELFPAY ==
[2025-03-19 15:51] VITALS: BMI 34.2
== END ==
PROVIDERS: PCP Obstetrics & Gynecology; Visit Provider Nurse Practitioner Family
DX: L08.9 Local infection of the skin and subcutaneous tissue, unspecified (principal)
CPT/HCPCS: 87070; 87075; 87077; 87147; 87186; 87205